=== PATIENT | female | born 1960 | race Caucasian/White ===

== ENCOUNTER 2016-10-22 13:33 | Emergency (ER) | payer MEDICARE, MEDICAID ==
[~2016-10-22] VITALS: Ht 157.5 cm; Wt 77.7 kg
[~2016-10-22 13:33] MED LIST: ALBU18HF INH; ARIP5TAB5 PO; FENT1PAT11 TRANSDERM; IPRA3AMP IH; LORA0.5T PO; MONT10TA20 PO; OXYC10TA8 PO; SYMINH IH; TIOT18CA3 IH
[2016-10-22 13:42] VITALS: BP 145/79; PULSE 94; RESP 18; O2SAT 97
--- NOTE | 2016-10-22 14:18 | DRSVH ---
PROCEDURE: X-RAY CHEST, TWO VIEWS ([id number]) INDICATIONS: chest pain/hx copd TECHNIQUE: 2 views of the chest were acquired. COMPARISON: [facility], CR, XR CHEST 1VW (PORTABLE), 08/01/2016, 11:08. FINDINGS: Surgical changes and devices: Clips are present overlying the lower thorax and upper abdomen. Lungs and pleura: No pleural effusions or pneumothorax. Lungs are clear. Mediastinum: Mediastinal contours are normal. Heart size is normal. Bones and chest wall: No suspicious bony abnormalities. Soft tissues appear unremarkable. IMPRESSION: No acute pulmonary process. Dictated by: Laurence Vo M.D. on 10/22/2016 at 14:16 Approved by: Laurence Vo M.D. on 10/22/2016 at 14:16
[2016-10-22 14:43] LABS: BASOPHILS % (AUTO) 0.5 % (0-3); EOSINOPHILS % (AUTO) 0.7 % (0-5); MONOCYTES % (AUTO) 9.9 % (4-12); Mean Corpuscular Hemoglobin 33.1 pg (27.0-35.0); Mean Corpuscular Volume 96.8 fL (81-100); NEUTROPHILS % (AUTO) 71.1 % (40-74); Platelet Count 402 bil/L (150-400)
[2016-10-22] MEDS ORDERED: Ondansetron 2 mg/mL 2 mL Inj ONE (14:49)
--- NOTE | 2016-10-22 15:13 | ED.REPORT ---
HPI-Chest Pain 40 and Over Date of Service Oct 22, 2016 ED Provider: Peña Gill MD Pt is a 55 year old female with a history of COPD and DM who presents to the ED with concerns for chest pressure that started this morning. Pt reports that she woke up with this pain, which is localized in her left side and radiates to her back. She states that the pain is exacerbated with movement and deep breathing and has been constant since its onset. Pt reports that the pain is associated with SOB, but denies any cough, lower extremity swelling or tenderness, rhinorrhea, or fevers. She reports that she quit smoking a couple of months ago. She denies any recent long periods of immobilization, or hx of blood clots. Nursing Notes Stated Complaint: LEFT SIDE CHEST PAIN Chief Complaint: Chest Pain Nursing Notes Reviewed: Yes Allergies: Coded Allergies: sumatriptan (Unverified Allergy, Severe, neuro sensation, 06/24/16) codeine (Verified Allergy, Intermediate, itching, nausea, 06/24/16) [id number] Antimigraine Agents (Verified Allergy, Unknown, strange feeling in head, 06/24/16) NSAIDS (Non-Steroidal Anti-Inflamma (Verified Adverse Reaction, Severe, Nausea,Vomiting, 06/24/16) acetaminophen (Verified Adverse Reaction, Severe, r/t liver damage, 06/24/16 ) nicotine (Verified Adverse Reaction, Severe, Rash,Itching,, 06/24/16) aspirin (Verified Adverse Reaction, Intermediate, Abdominal Pain, nausea, hx liver injury, 06/24/16) Scheduled Aripiprazole (Abilify) 5 Mg Tablet 10 MG PO DAILY Budesonide/Formoterol 160-4.5 mcg Inh (Symbicort 160-4.5 mcg Inh) 1 Puff Inha 2 PUFF IH BID Fentanyl 100 mcg/hr Patch (Fentanyl 100 mcg/hr Patch) 1 Each Patch.td72 1 PATCH TRANSDERM Q3D USE W/ 25MCG/HR PATCH Montelukast (Singulair) 10 Mg Tablet 10 MG PO QAM Tiotropium [place] (Spiriva) 18 Mcg Cap.w.dev 18 MCG IH AM Scheduled PRN Albuterol Sulfate (Ventolin HFA Inhaler) 200 Puff/18 Gm Inhaler 2 PUFF INH Q4 PRN PRN For Wheezing Ipratropium/Albuterol Sulfate (Iprat-Albut 0.5-3(2.5) mg/3 mL Inhalant Soln) 3 Ml Ampul.neb 3 ML IH TID PRN PRN PRN Lorazepam (Lorazepam) 0.5 Mg Tablet 0.5 MG PO TID PRN PRN For Anxiety oxyCODONE (oxyCODONE) 10 Mg Tablet 10 MG PO Q4H PRN PRN For Pain General Time Seen by MD: 15:10 Chief Complaint Chest pain Hx Obtained From: Patient Arrived By: Walk-in Sudden in Onset?: Yes Onset Occurred: 9 - 12 hours ago Symptom Duration: Since onset Location: : Chest left Quality: Painful Radiation: : Back Severity: Current: Mild Severity: Maximum: Moderate Similar Sx Previous: Yes Risk Factors Well's Criteria for PE Well's PE Score: 0-2 pts (low risk 3.6%) Past Medical History Past Medical History Notes: Multiple recent admissions, discharge dates: 07/10, 08/15, 09/19, and 10/10 COPD exacerbation and pneumonia Past Medical History Angioimmunoblastic T-cell lymphoma, with hemolytic anemia followed by Dr. Lincoln. Depression, anxiety requiring benzodiazepines Chronic pain with narcotic dependence Inflamed ducts, left breast, requiring mastectomy Migraines Chronic respiratory failure, with oxygen/steroid dependent COPD Cervical stenosis with myeloradiculopathy s/p C3-C4, C4-C5, and C5-C6 anterior cervical diskectomy and fusion performed by Dr. Rashawn Joe, Oct 2011 Migraine headaches. Report of seizure disorder history Hypothyroidism. Distant history of seizures. 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 Reports: COPD, Diabetes mellitus, Hypertension Reports: Migraines Past Surgical History Splenectomy due to trauma Left mastectomy Lumbar spine surgery, cervical spine surgery Sinus surgery for deviated septum, Exploratory laparotomy for bowel obstruction Hernia repair Power port Reports: Appendectomy, , Tonsillectomy Reports: Portocath Family History Noncontributory Smoking History Light Tobacco Smoker Social History Alcohol Use: Denies alcohol use Drug Use: THC Other Social History: Local resident Ambulatory Status Independent Review of Systems Constitutional: Denies: Chills, Fever, Malaise, Weakness - generalized Respiratory: Reports: Shortness of breath, Denies: Non-productive cough, Wheezing Cardiovascular: Reports: Chest pain, Denies: Syncope GI: Denies: Abdominal pain, Constipation, Diarrhea, Nausea, Vomiting Musculoskeletal: Denies: Back pain, Extremity pain, Neck pain Skin: Denies Diaphoresis, Denies Rash Neurologic: Denies: Change LOC, Dizziness, Headache, Seizure, Syncope, Weakness Complete sys rev & neg: except as marked. Physical Exam Initial Vital Signs Vital Signs (First) Date Time Temp Pulse Resp B/P Pulse Ox O2 Delivery O2 Flow Rate FiO2 10/22/16 13:42 36.4 94 18 145/79 97 Room Air Initial VS: Reviewed Head / Eyes: Atraumatic, Normocephalic, PERRL ENT: Mucous membranes moist, Conjunctiva normal, No scleral icterus Neck: Supple, Non-tender, Full range of motion Skin: Warm, Dry, No cyanosis Neurologic: Alert, Oriented, Nonfocal Psychiatric: Mood/affect normal, Behavior normal, Normal thought content General/Constitutional: Awake, Alert, Well appearing, Well developed, Well nourished, Cooperative Appearance / Presentation: Positive: Obese, Uncomfortable Respiratory / Chest: Atraumatic, Breath sounds NL, Breath sounds = bilat, No respiratory distress Cardiovascular: Heart rate NL, Regular rhythm, Heart sounds NL, No gallop, No murmurs, No rubs No LE edema Abdomen: Atraumatic, Soft, Non-tender Interpretation & Diagnostics Lab Results Interpretation Result Diagram: 10/22/16 1435 10/22/16 1435 Test 10/22/16 14:35 White Blood Count 16.8th/mm3 (3.8-10.1) Red Blood Count 4.08mil/mm3 (3.90-5.20) Hemoglobin 13.5g/dL (12.0-15.6) Hematocrit 39.5% (35.0-46.0) Mean Corpuscular Volume 96.8fL (81-100) Mean Corpuscular Hemoglobin 33.1pg (27.0-35.0) Mean Corpuscular Hemoglobin Concent 34.2% (32.0-37.0) Red Cell Distribution Width 13.1% (12.3-15.4) Platelet Count 402bil/L (150-400) Neutrophils (%) (Auto) 71.1% (40-74) Lymphocytes (%) (Auto) 17.5% (14-46) Monocytes (%) (Auto) 9.9% (4-12) Eosinophils (%) (Auto) 0.7% (0-5) Basophils (%) (Auto) 0.5% (0-3) D-Dimer < 0.5mg/L (<0.50) Sodium Level 138mEq/L (134-144) Potassium Level 4.0mEq/L (3.5-5.2) Chloride Level 101mEq/L (97-108) Carbon Dioxide Level 26mmol/L (18-29) Blood Urea Nitrogen 9mg/dL (6-24) Creatinine 0.55mg/dL (0.57-1.00) Estimat Glomerular Filtration Rate 164mL/min (>59) Glucose Level 175mg/dL (60-99) Lactic Acid Level 0.2mmol/L (0.4-2.0) Calcium Level 9.1mg/dL (8.5-10.1) Total Bilirubin 0.3mg/dL (0.0-1.2) Aspartate Amino Transf (AST/SGOT) 54U/L (0-50) Alanine Aminotransferase (ALT/SGPT) 106U/L (0-32) Alkaline Phosphatase 143U/L (25-150) Troponin T < 0.010ug/L (0.0-0.011) Total Protein 6.4g/dL (6.4-8.4) Albumin 4.0g/dL (3.4-5.0) Hold Cabezas Top Tube Received (Received) ECG Interpretation ECG Interpretation: SR - [address] segment changes Time: 14:24 Interpreted by: ED physician X-Ray Chest Interpretation Chest Xray Interpretation: IMPRESSION: No acute pulmonary process. Dictated by: Laurence Vo M.D. on 10/22/2016 at 14:16 Interpretation / Wet Read by: Interpret - Radiologist Re-Eval/Medical Decision Med Decision/Clinical Course 55-year-old female history of COPD presenting with left-sided chest pain that woke her up this morning at 07 100. Denies any shortness of breath cough, other associated symptoms. Vital signs stable. Oxygen is 97% on room air. Lungs are clear. Troponins negative. D-dimer normal. EKG unremarkable. Chest x-ray unremarkable. Chest pain is reproducible. Suspect musculoskeletal in the setting of normal workup as above. Patient cannot take nonsteroidal anti-inflammatories was given morphine with improvement in pain. Of note she has also discontinued her muscle relaxers recently does report some spasming left chest. Given normal workup as above in exam as above, I believe patient to be discharged home safely with return precautions. Recommended follow-up with primary doctor 1-2 days. Source of Hx: Old records Time of Eval: 15:30 Re-Evaluation/Progress Note: Pt is rechecked and reports that she is unable to take NSAIDS du to allergy. She reports that she is on steroids, she is in remission for a Lymphoma. Time of Eval: 16:14 Re-Evaluation/Progress Note: Pt is rechecked and informed of her imaging results, and the plan to discharge her at this time. She understands and agrees, all questions are addressed. Counseled Regarding: Diagnosis, Lab results, When/why to return to ED Discharge & Departure Primary Impression: Chest pain Chest pain type: unspecified Qualified Code: R07.9 - Chest pain, unspecified Disposition: Home Discharge Condition All VS Reviewed: Yes Condition: Critical Patient Instructions: Chest Pain (ED) Additional Instructions: I am sorry that you are experiencing this chest pain today, but thankfully I found no dangerous cause for this today. Your labs, EKG and chest x-ray were all reassuring. Follow up with your primary care provider later this week for this pain. Take Tylenol to alleviate your pain. Return to the emergency department with any worsening chest pain, shortness of breath, fevers, or any other worsening or concerning symptoms. I hope you start feeling better soon. Referrals: Sumanth Montes (PCP) Catherineibserina Attestation Portions of this note were transcribed by Brandie Zhang. I, Dr. Gill personally performed the history, physical exam and medical decision-making; I reviewed and confirmed the accuracy of the information in the transcribed note. Signed by: Catherine Carr, 10/22/2016 1610. copies to: Sumanth Montes Ben M MD Oct 22, 2016 15:13 JACQUES ZHANG Oct 22, 2016 15:28
[2016-10-22 15:28] LABS: TROPONIN T < 0.010 ug/L (0.0-0.011)
[2016-10-22] MEDS ORDERED: Ondansetron 2 mg/mL 2 mL Inj IVPUSH ONE (15:35)
[2016-10-22 16:04] VITALS: BP 132/68; PULSE 80; RESP 27; O2SAT 98
[2016-10-22 16:27] VITALS: BP 134/80; PULSE 79; RESP 14; O2SAT 97
[2016-10-22 16:33] VITALS: BP 134/80; PULSE 79; O2SAT 97
[2017-02-17] MEDS ORDERED: PRE20 PO (10:22)
[2017-02-17] MEDS ORDERED: AZIT250T4 PO (10:22)
[2017-03-03] MEDS ORDERED: VARE1TAB21 PO (08:14)
[2017-03-03] MEDS ORDERED: HYDR-656 PO (08:14)
== END 2016-10-22 16:11 | disposition home or self-care (01) ==
LOC: SED 13:33
DX: R07.89 Other chest pain (principal); E11.9 Type 2 diabetes mellitus without complications; I10 Essential (primary) hypertension; J44.9 Chronic obstructive pulmonary disease, unspecified; F17.200 Nicotine dependence, unspecified, uncomplicated; Z88.5 Allergy status to narcotic agent; Z88.8 Allergy status to other drugs, medicaments and biological substances
CPT/HCPCS: 36415; 71020; 80053; 83605; 84484; 85025; 85379; 93005; 96374; 96375; 99285; J2270; J2405

== ENCOUNTER 2017-02-19 08:35 | Inpatient (IN) | payer MEDICARE, MEDICAID ==
[~2017-02-19] VITALS: Ht 154.9 cm; Wt 83.2 kg
[2017-02-19] VITALS (13 sets, daily range): BP systolic 113–135; BP diastolic 63–87; PULSE 67–91; RESP 16–22; O2SAT 92–98
[~2017-02-19 08:35] MED LIST changes: +AZIT250T4 PO; -LORA0.5T PO; +PRE20 PO
[2017-02-19] MEDS ORDERED: Albuterol-Ipratropium 3 mL Inhalation Solution ONE (08:56)
--- NOTE | 2017-02-19 09:13 | DRSVH ---
PROCEDURE: X-RAY CHEST ONE VIEW, PORTABLE ([id number]) INDICATIONS: SHORTNESS OF BREATH TECHNIQUE: One view of the chest was acquired. COMPARISON: [facility], CR, XR CHEST 2VW, 10/22/2016, 14:05. FINDINGS: Surgical changes and devices: None. Lungs and pleura: No pleural effusions or pneumothorax. Lungs are clear. Mediastinum: Mediastinal contours appear normal. Heart size is normal. Bones and chest wall: No suspicious bony lesions. Overlying soft tissues appear unremarkable. IMPRESSION: Negative chest. No acute cardiopulmonary process is evident. Dictated by: Robert Sotelo M.D. on 02/19/2017 at 8:11 Approved by: Robert Sotelo M.D. on 02/19/2017 at 8:12
[2017-02-19 09:15] LABS: BASOPHILS % (AUTO) 0.5 % (0-3); EOSINOPHILS % (AUTO) 0.2 % (0-5); MONOCYTES % (AUTO) 11.3 % (4-12); Mean Corpuscular Hemoglobin 34.4 pg (27.0-35.0); Mean Corpuscular Volume 97.6 fL (81-100); NEUTROPHILS % (AUTO) 71.4 % (40-74); Platelet Count 415 bil/L (150-400)
--- NOTE | 2017-02-19 09:25 | ED.REPORT ---
HPI-Dyspnea / Wheezing Date of Service February 19, 2017 ED Provider: Peña Gill MD The patient is a 56 year old female w/ a hx of lymphoma, COPD, HTN, and DM who presents to the ED due to COPD exacerbation for the last 2 days. Associated symptoms include cough and chest pain. She is currently on prednisone (40 mg for 2 days then reduced to 20 mg) and inhalers. She was admitted to [facility] over the weekend for an observation stay and was discharged wit cruz Zpak and steroids. The pt felt like she was initially improving on the steroids , but then began to decline again over the past few days. Nursing Notes Stated Complaint: SHORTNESS OF BREATH Chief Complaint: Respiratory Distress Nursing Notes Reviewed: Yes Allergies: Coded Allergies: sumatriptan (Unverified Allergy, Severe, neuro sensation, 02/19/17) codeine (Verified Allergy, Intermediate, itching, nausea, 02/19/17) [id number] Antimigraine Agents (Verified Allergy, Unknown, strange feeling in head, 02/19/17) NSAIDS (Non-Steroidal Anti-Inflamma (Verified Adverse Reaction, Severe, Nausea,Vomiting, 02/19/17) acetaminophen (Verified Adverse Reaction, Severe, r/t liver damage, 02/19/17 ) nicotine (Verified Adverse Reaction, Severe, Rash,Itching,, 02/19/17) aspirin (Verified Adverse Reaction, Intermediate, Abdominal Pain, nausea, hx liver injury, 02/19/17) Scheduled Aripiprazole (Aripiprazole) 10 Mg Tablet 10 MG PO DAILY Budesonide/Formoterol 160-4.5 mcg Inh (Symbicort 160-4.5 mcg Inh) 1 Puff Inha 2 PUFF IH BID Duloxetine (Duloxetine) 30 Mg Capsule.dr 30 MG PO DAILY In addition to 60mg daily Duloxetine (Duloxetine) 60 Mg Capsule.dr 60 MG PO DAILY Fentanyl 25 mcg/hr Patch (Fentanyl 25 mcg/hr Patch) 1 Each Patch.td72 25 MCG TOP Q72Hrs Montelukast (Montelukast) 10 Mg Tablet 10 MG PO HS Tiotropium [place] (Spiriva) 18 Mcg Cap.w.dev 18 MCG IH AM Scheduled PRN Albuterol Sulfate (Ventolin HFA Inhaler) 200 Puff/18 Gm Inhaler 2 PUFF INH Q4 PRN PRN For Wheezing Ipratropium/Albuterol Sulfate (Iprat-Albut 0.5-3(2.5) mg/3 mL Inhalant Soln) 3 Ml Ampul.neb 3 ML IH TID PRN PRN PRN oxyCODONE (oxyCODONE) 10 Mg Tablet 10 MG PO Q4H PRN PRN For Pain General Time Seen by MD: 08:57 Chief Complaint Other (COPD exacerbation) Hx Obtained From: Patient Arrived By: Walk-in Sudden in Onset?: Yes Onset Occurred: 1 week ago Symptom Duration: Since onset Recent Healthcare: Recent doctor visit, Recent hospitalization Similar Sx Previous: Yes Risk Factors Well's Criteria for PE Well's PE Score: 0-2 pts (low risk 3.6%) Past Medical History Past Medical History Notes: Multiple recent admissions, discharge dates: 07/10, 08/15, 09/19, and 10/10 COPD exacerbation and pneumonia Past Medical History Angioimmunoblastic T-cell lymphoma, with hemolytic anemia followed by Dr. Lincoln. Depression, anxiety requiring benzodiazepines Chronic pain with narcotic dependence Inflamed ducts, left breast, requiring mastectomy Migraines Chronic respiratory failure, with oxygen/steroid dependent COPD Cervical stenosis with myeloradiculopathy s/p C3-C4, C4-C5, and C5-C6 anterior cervical diskectomy and fusion performed by Dr. Rashawn Joe, Oct 2011 Migraine headaches. Report of seizure disorder history Hypothyroidism. Distant history of seizures. 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 Reports: COPD, Diabetes mellitus, Hypertension Reports: Migraines Past Surgical History Splenectomy due to trauma Left mastectomy Lumbar spine surgery, cervical spine surgery Sinus surgery for deviated septum, Exploratory laparotomy for bowel obstruction Hernia repair Power port Reports: Appendectomy, , Tonsillectomy Reports: Portocath Family History Noncontributory Smoking History Former Smoker Social History Alcohol Use: Denies alcohol use Drug Use: THC Other Social History: Local resident Ambulatory Status Independent Review of Systems Respiratory: Reports: Non-productive cough, Shortness of breath Cardiovascular: Reports: Chest pain Complete sys rev & neg: except as marked. Physical Exam Initial Vital Signs Vital Signs (First) Date Time Temp Pulse Resp B/P Pulse Ox O2 Delivery O2 Flow Rate FiO2 02/19/17 08:37 37.4 81 16 130/73 92 Room Air 02/19/17 08:45 2.5 Initial VS: Reviewed Head / Eyes: Atraumatic, Normocephalic ENT: Mucous membranes moist, Conjunctiva normal Abdomen / GI: Soft, Non-tender Extremities: Vascular intact, Neuro intact, No swelling Skin: Warm, Dry General/Constitutional: Awake, Alert, Cooperative Neck: Atraumatic, Supple, No meningismus Wheezing / Retractions: Positive: Wheeze insp/exp diffuse Cardiovascular: Heart rate NL, Regular rhythm, Heart sounds NL, No murmurs Interpretation & Diagnostics Lab Results Interpretation Result Diagram: 02/19/17 0850 02/19/17 0850 Test 02/19/17 08:50 02/19/17 09:00 White Blood Count 22.1th/mm3 (3.8-10.1) Red Blood Count 4.16mil/mm3 (3.90-5.20) Hemoglobin 14.3g/dL (12.0-15.6) Hematocrit 40.6% (35.0-46.0) Mean Corpuscular Volume 97.6fL (81-100) Mean Corpuscular Hemoglobin 34.4pg (27.0-35.0) Mean Corpuscular Hemoglobin Concent 35.2% (32.0-37.0) Red Cell Distribution Width 13.8% (12.3-15.4) Platelet Count 415bil/L (150-400) Neutrophils (%) (Auto) 71.4% (40-74) Lymphocytes (%) (Auto) 13.3% (14-46) Monocytes (%) (Auto) 11.3% (4-12) Eosinophils (%) (Auto) 0.2% (0-5) Basophils (%) (Auto) 0.5% (0-3) D-Dimer < 0.50mg/L FEU (<0.50) Sodium Level 141mEq/L (134-144) Potassium Level 4.2mEq/L (3.5-5.2) Chloride Level 99mEq/L (97-108) Carbon Dioxide Level 27mmol/L (18-29) Blood Urea Nitrogen 17mg/dL (6-24) Creatinine 0.65mg/dL (0.57-1.00) Estimat Glomerular Filtration Rate 135mL/min (>59) Glucose Level 189mg/dL (60-99) Calcium Level 9.4mg/dL (8.5-10.1) Magnesium Level 2.2mg/dL (1.6-2.6) Total Bilirubin 0.5mg/dL (0.0-1.2) Aspartate Amino Transf (AST/SGOT) 23U/L (0-50) Alanine Aminotransferase (ALT/SGPT) 73U/L (0-32) Alkaline Phosphatase 133U/L (25-150) Troponin T 0.010ug/L (0.0-0.011) Pro-B-Type Natriuretic Peptide 270.3pg/mL (0-287) Total Protein 6.5g/dL (6.4-8.4) Albumin 4.3g/dL (3.4-5.0) Hold Cabezas Top Tube Received (Received) Urine Color Yellow (YELLOW) Urine Appearance Slightly cloudy Urine pH 7.0 (5.0-8.0) Urine Specific Avenue 1.005 (1.003-1.035) Urine Protein Negativemg/dL (NEG,TRACE) Urine Glucose (UA) Negativemg/dL (NEGATIVE) Urine Ketones Negativemg/dL (NEGATIVE) Urine Occult Blood Negative (NEGATIVE) Urine Nitrite Negative (NEGATIVE) Urine Bilirubin Negative (NEGATIVE) Urine Urobilinogen Normalmg/dL (NORMAL) Urine Leukocyte Esterase Trace (NEGATIVE) Urine RBC 0-2/hpf (0-2) Urine WBC 0-5/hpf (0-5) Urine Epithelial Cells Moderate/hpf (NONE-MOD) Urine Crystals None seen (NONE SEEN) Urine Bacteria Moderate/hpf (NONE-FEW) Urine Hyaline Casts None/lpf (NONE) Urine Granular Casts None seen (NONE SEEN) Urine Waxy Casts None seen (NONE SEEN) Urine Red Blood Cell Casts None seen (NONE SEEN) Urine White Blood Cell Casts None seen (NONE SEEN) Urine Mucus Present (None Seen) Urine Trichomonas None seen (NONE SEEN) Urine Yeast None (NONE SEEN) Urinalysis Comment None Urine Culture Reflexed Indicated ECG Interpretation Time: 09:00 Interpreted by: ED physician Normal ECG Interpretation: Normal sinus rhythm (69) X-Ray Chest Interpretation Chest Xray Interpretation: IMPRESSION: Negative chest. No acute cardiopulmonary process is evident. Dictated by: Robert Sotelo M.D. on 02/19/2017 at 8:11 Approved by: Robert Sotelo M.D. on 02/19/2017 at 8:12 View: Portable Interpretation / Wet Read by: Interpret - Radiologist Re-Eval/Medical Decision Med Decision/Clinical Course 56-year-old female history of cell lymphoma in remission, COPD presenting with dyspnea times one week. She was admitted for COPD exacerbation at outside hospital [place] over the weekend for observation. She was told by her oncologist if it gets worse to come here instead. On arrival she had moderate work of breathing. She was given several nebulizers and IV Solu-Medrol and had minimal improvement. She was still complaining of severe shortness of breath and mild work of breathing. She has a leukocytosis but she has been on steroids. She completed a Z-Miky yesterday. Patient does not feel comfortable going home as [place] away. Admitted for COPD exacerbation. Re-Evaluation/Progress #1: Time of Eval: 09:29 Re-Evaluation/Progress Note: Plan for another breathing treatment. Re-Evaluation/Progress #2: Time of Eval: 10:26 Re-Evaluation/Progress Note: Pt rechecked. Breathing is slightly improved with treatment. Plan for admission due to COPD exacerbation. Consultation : Referral / Consult Name: KWESI SHRESTHA MD Consulted With: Hospitalist Call Returned at: 11:31 Analysis Specialist: Accepts admit Note: Case discussed. Dr. Shrestha will accept admit. Counseled Regarding: Diagnosis, Lab results, Need for admission Discharge & Departure Impression: Primary Impression: COPD exacerbation Additional Impression: Chest pain Chest pain type: unspecified Qualified Code: R07.9 - Chest pain, unspecified Disposition: ADMITTED TO HOSPITAL Discharge Condition All VS Reviewed: Yes Condition: Stable Referrals: Sumanth Montes (PCP) Atif Attestation Portion of this note were transcribed by Carmen Busby. I, Dr. Gill, personally performed the history, physical exam, and medical decision-making: I reviewed and confirmed the accuracy for the information in the transcribed note. Signed by: atif Michel, 02/19/17 1200 copies to: Sumanth Montes Ben M MD February 19, 2017 09:25 Carmen Busby February 19, 2017 09:33
[2017-02-19] MEDS ORDERED: MethylprednisoLONE Sodium Succinate 62.5 mg/mL 2 mL Inj IVPUSH ONE (09:30)
[2017-02-19] MEDS ORDERED: Albuterol-Ipratropium 3 mL Inhalation Solution NEB ONE (09:30)
[2017-02-19 09:42] LABS: TROPONIN T 0.01 ug/L (0.0-0.011)
[2017-02-19 09:52] LABS: APPEARANCE,URINE SLIGHTLY CLOUDY (CLEAR,HAZY); COLOR,URINE YELLOW (YELLOW)
[2017-02-19 09:53] LABS: Magnesium 2.2 mg/dL (1.6-2.6)
[2017-02-19 09:53] LABS: OCCULT BLOOD,URINE NEGATIVE (NEGATIVE); UROBILINOGEN,URINE NORMAL (NORMAL)
[2017-02-19] MEDS ORDERED: Ondansetron 2 mg/mL 2 mL Inj IVPUSH ONE (10:40)
[2017-02-19] MEDS ORDERED: Polyethylene Glycol (PEG) 17 Gm Powder PO PRN (11:35)
[2017-02-19] MEDS ORDERED: Alum-Mag Hydrox-Simeth 30 mL Suspension PO PRN (11:35)
[2017-02-19] MEDS ORDERED: ARIP10TA16 PO (13:08)
[2017-02-19] MEDS ORDERED: DULO60CA61 PO (13:08)
[2017-02-19] MEDS ORDERED: FENT1PAT7 TOP (13:08)
[2017-02-19] MEDS ORDERED: DULO30CA50 PO (13:08)
[2017-02-19] MEDS ORDERED: MONT10TA23 PO (13:08)
[2017-02-19] MEDS: Ondansetron 2 mg/mL 2 mL Inj IVPUSH PRN (13:29)
--- NOTE | 2017-02-19 13:48 | PCM.HPMED ---
Subjective Date of Service February 19, 2017 Primary Provider: Admitting Physician: Kevin Shrestha DO Primary Care Physician: Sumanth Montes Attending Physician: Kevin Shrestha DO Admit Status: From the Emergency Department Chief Complaint: Persistent and worsening shortness of breath History of Present Illness: Patient is a 56-year-old female past medical history of severe COPD hypertension diabetes mellitus and lymphoma currently in remission, presenting emergency room with a greater than one-week history of worsening shortness of breath. Projection is seen Observation overnight and oriented hospital on week prior, at which time she was provided dose of Solu-Medrol and discharged on a 5 day course of prednisone 40 mg by mouth in addition to Z-Miky. She was initially feeling better on discharge more than hospital with shortness of breath again continue to worsen over the last couple of days and got to the point where she felt she needed further evaluation. She notes prior presentation to emergency room she was short of breath even at rest and was able to do nearly no form of exertion without severe dyspnea. Denies any overt chest pain however but she endorses diffuse chest tightness. She denies any recent fever or chills. She also endorses seasonal allergies and wonders if this may be playing a role in her current decompensation. He denies any abdominal pains or emesis but she has had some nausea over the past couple days. Review of Systems: 10-point review of systems conducted and entirely negative excepting pertinent positives and negatives included in HPI. Allergies Coded Allergies: sumatriptan (Unverified Allergy, Severe, neuro sensation, 02/19/17) codeine (Verified Allergy, Intermediate, itching, nausea, 02/19/17) [id number] Antimigraine Agents (Verified Allergy, Unknown, strange feeling in head, 02/19/17) NSAIDS (Non-Steroidal Anti-Inflamma (Verified Adverse Reaction, Severe, Nausea,Vomiting, 02/19/17) acetaminophen (Verified Adverse Reaction, Severe, r/t liver damage, 02/19/17 ) nicotine (Verified Adverse Reaction, Severe, Rash,Itching,, 02/19/17) aspirin (Verified Adverse Reaction, Intermediate, Abdominal Pain, nausea, hx liver injury, 02/19/17) Home Medications Aripiprazole (Abilify) 5 Mg Tablet 10 MG PO DAILY Azithromycin (Zithromax (Z-Miky)) 250 Mg Tablet 250 MG PO DIRECTED Take two tablets by mouth on day 1, then take one tablet daily on days 2 through 5. Budesonide/Formoterol 160-4.5 mcg Inh (Symbicort 160-4.5 mcg Inh) 1 Puff Inha 2 PUFF IH BID Fentanyl 100 mcg/hr Patch (Fentanyl 100 mcg/hr Patch) 1 Each Patch.td72 1 PATCH TRANSDERM Q3D USE W/ 25MCG/HR PATCH Montelukast (Singulair) 10 Mg Tablet 10 MG PO QAM Prednisone (PredniSONE) 20 Mg Tablet 20 MG PO DAILY Tiotropium [place] (Spiriva) 18 Mcg Cap.w.dev 18 MCG IH AM Scheduled PRN Albuterol Sulfate (Ventolin HFA Inhaler) 200 Puff/18 Gm Inhaler 2 PUFF INH Q4 PRN PRN For Wheezing Ipratropium/Albuterol Sulfate (Iprat-Albut 0.5-3(2.5) mg/3 mL Inhalant Soln) 3 Ml Ampul.neb 3 ML IH TID PRN PRN PRN oxyCODONE (oxyCODONE) 10 Mg Tablet 10 MG PO Q4H PRN PRN For Pain PMH Angioimmunoblastic T-cell lymphoma, with hemolytic anemia followed by . Depression, anxiety requiring benzodiazepines Chronic pain with narcotic dependence Inflamed ducts, left breast, requiring mastectomy Migraines Chronic respiratory failure, with oxygen/steroid dependent COPD Cervical stenosis with myeloradiculopathy s/p C3-C4, C4-C5, and C5-C6 anterior cervical diskectomy and fusion performed by Dr. Rashawn Joe, Oct 2011 Migraine headaches. Report of seizure disorder history Hypothyroidism. Distant history of seizures. 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 COPD, Diabetes mellitus, Hypertension Surgical History Splenectomy due to trauma Left mastectomy Lumbar spine surgery, cervical spine surgery Sinus surgery for deviated septum, Exploratory laparotomy for bowel obstruction Hernia repair Power port Appendectomy, , Tonsillectomy Portocath Family History Pt denies any known family medical history Social History Hx Alcohol Use: No Hx Substance Use: Yes (marijuana daily.) Hx Tobacco Use: Yes (0.5 ppd) Smoking Status: Former Smoker Exam Vital Signs Vital Sign - Last Date Time Temp Pulse Resp B/P Pulse Ox O2 Delivery O2 Flow Rate FiO2 02/19/17 13:38 78 02/19/17 12:03 36.6 22 125/78 94 Nasal Cannula 1.50 General: Alert, Oriented X3, Cooperative, Mild Distress Eyes: EOMI Mouth: Mucous Membr Moist/[place] Neck: Supple Chest & Lungs: Clear to auscultation & percussion, Coarse breath sounds, Expiratory wheezes Cardiovascular: Regular Rate/Rhythm Abdomen: Non-tender, Non-distended Extremities: No cyanosis/clubbing/edma bilat Neurological: Grossly Neurologically Intact Lab and Diagnostics Result Diagram: 02/19/17 0850 02/19/17 0850 IVs and Medications Medications Reviewed: Medications were reviewed in detail Assessment & Plan 56-year-old female with COPD placed on hospital observation for severe exacerbation not responsive to initial steroid burst therapy. 1. COPD exacerbation - Given normal white blood cell count and normal pro-calcitonin we will defer antibiotic therapy at this time elect only for treatment with steroids. - Patient received 1 dose Solu-Medrol, we will continue prednisone at 60 mg daily starting tomorrow - Patient is on home oxygen will be provided supplement oxygen as needed during this hospitalization. Generally its only required sleep. - DuoNeb therapies have been prescribed every 4 hours on a standing basis at this time to be tapered as tolerated. Most the patient's own nebulizer therapies were continued however Spiriva on hold while DuoNeb's active. 2. Diabetes mellitus type II - Patient will be placed on sliding scale insulin. - Anticipate some exacerbation with steroid burst 3. Mood disorder with anxiety and depression symptoms - We will continue to Cymbalta current outpatient dosage, in addition to Abilify. 4. 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 - We will continue all medications at this time, consider further adjustments as needed for pain not responsive to outpatient therapy. Pain Evaluation: Adequate Pain Control GI Prophylaxis: Not indicated VTE Mechanical Devices: Intermittant Pneumatic CD Resuscitation Status: CPR: Attempt Resuscitation Time spent 55 minutes Kevin Shrestha DO February 19, 2017 13:48
[2017-02-19] MEDS ORDERED: Glucose 40% Oral Gel 15 Gm Tube PO PRN (14:55)
[2017-02-19] MEDS: DULoxetine 30 mg DR Capsule PO SCH ×2 (15:20)
[2017-02-19] MEDS: Albuterol-Ipratropium 3 mL Inhalation Solution NEB SCH ×3 (16:49→23:10)
[2017-02-19] MEDS: Insulin LISPRO 300 Unit/3 mL Inj SUBQ SCH ×2 (17:18→22:01)
[2017-02-19] MEDS: Fluticasone-Salmererol 250-50 Inhaler INHALATION SCH (20:11)
[2017-02-20] VITALS (8 sets, daily range): BP systolic 106–146; BP diastolic 66–79; PULSE 71–97; RESP 16–21; O2SAT 92–98
[2017-02-20] MEDS: Albuterol-Ipratropium 3 mL Inhalation Solution NEB SCH ×3 (04:54→12:50)
[2017-02-20 07:03] LABS: Mean Corpuscular Hemoglobin 33.3 pg (27.0-35.0); Mean Corpuscular Volume 99.7 fL (81-100); Platelet Count 374 bil/L (150-400)
[2017-02-20 08:10] LABS: MONOCYTES % (AUTO) 8 % (4-12); NEUTROPHILS % (AUTO) 70 % (40-74)
[2017-02-20] MEDS: ARIPiprazole 10 mg Tablet PO SCH (08:10)
[2017-02-20] MEDS: DULoxetine 30 mg DR Capsule PO SCH ×2 (08:10→08:11)
[2017-02-20 08:11] LABS: BASOPHILS % (AUTO) 0 % (0-3); EOSINOPHILS % (AUTO) 0 % (0-5)
[2017-02-20] MEDS: predniSONE 20 mg Tablet PO SCH (08:11)
[2017-02-20] MEDS: Insulin LISPRO 300 Unit/3 mL Inj SUBQ SCH ×4 (08:12→20:49)
[2017-02-20] MEDS ORDERED: DULoxetine 30 mg DR Capsule PO SCH ×2 (08:30)
[2017-02-20] MEDS: Fluticasone-Salmererol 250-50 Inhaler INHALATION SCH ×2 (09:11→19:59)
[2017-02-20] MEDS: Ondansetron 2 mg/mL 2 mL Inj IVPUSH PRN (11:26)
--- NOTE | 2017-02-20 14:09 | PCM.PNMED ---
Subjective Date of Service February 20, 2017 Subjective Patient notes some improvement in breathing function overnight though certainly not return to baseline. She is to require oxygen to breathe comfortably. Does not I fever chills however. Still experiencing some diffuse chest tightness but no chest pains. Also denies any palpitations. Appetite is adequate. No other acute complaints at this time. Appears to be benefiting from current therapy, notes following nebulizer treatments breathing feels much relieved. Exam Vital Signs Vital Sign - Last Date Time Temp Pulse Resp B/P Pulse Ox O2 Delivery O2 Flow Rate FiO2 02/20/17 12:52 94 16 96 Nasal Cannula 1.50 02/20/17 12:44 36.5 110/66 Intake and Output 02/19/17 02/19/17 02/20/17 Cumulative From/Thru 15:00 23:00 07:00 02/19/17 08:37 - 02/19/17 19:08 Intake Total 1236 ml 1236 ml Output Total 925 ml 925 ml Balance 311 ml 311 ml Intake Oral 1236 ml 1236 ml Output Urine Total 925 ml 925 ml Exam General: Alert, Oriented X3, Cooperative, Mild Distress Eyes: EOMI Mouth: Mucous Membranes Moist/[place] Neck: Supple Chest & Lungs: Clear to auscultation & percussion, Coarse breath sounds but improved from one day prior, Expiratory wheezes with good inspiratory breath sounds. Cardiovascular: Regular Rate/Rhythm Abdomen: Non-tender, Non-distended Extremities: No cyanosis/clubbing/edema bilat IVs and Medications Medications Reviewed: Medications were reviewed in detail Lab and Diagnostics Result Diagram: 02/20/17 0635 02/20/17 0635 Assessment & Plan 56-year-old female with COPD placed on hospital observation for severe exacerbation not responsive to initial steroid burst therapy. 1. COPD exacerbation - Given normal white blood cell count and normal pro-calcitonin we will defer antibiotic therapy at this time elect only for treatment with steroids. - Patient received 1 dose Solu-Medrol, we will continue prednisone at 60 mg daily, which she appears to be benefiting from. I anticipate this is the primary cause for patient's leukocytosis. - Patient is on home oxygen will be provided supplement oxygen as needed during this hospitalization. Generally its only required sleep. - DuoNeb therapies have been prescribed every 4 hours on a standing basis now to be tapered as needed. Most of the patient's own nebulizer therapies were continued however Spiriva on hold while DuoNeb's active. 2. Diabetes mellitus type II - Patient will be placed on sliding scale insulin. - Anticipate some exacerbation with steroid burst 3. Mood disorder with anxiety and depression symptoms - We will continue to Cymbalta current outpatient dosage, in addition to Abilify. 4. 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 - We will continue all medications at this time, consider further adjustments as needed for pain not responsive to outpatient therapy. Pain Evaluation: Adequate Pain Control GI Prophylaxis: Not indicated VTE Mechanical Devices: Intermittant Pneumatic CD Resuscitation Status: CPR: Attempt Resuscitation Time spent 25 minutes Kevin Shrestha DO February 20, 2017 14:09
[2017-02-20] MEDS ORDERED: Albuterol-Ipratropium 3 mL Inhalation Solution NEB PRN (14:10)
[2017-02-20] MEDS: guaiFENesin DM 200-20 mg/10 mL Syrup PO PRN ×2 (14:57→20:48)
[2017-02-21 04:33] VITALS: BP 146/83; PULSE 63; RESP 20; O2SAT 94
[2017-02-21] MEDS: Insulin LISPRO 300 Unit/3 mL Inj SUBQ SCH (07:56)
--- NOTE | 2017-02-21 08:10 | PCM.DC.MED ---
Discharge Summary Date of Service February 21, 2017 Dates of Hospitalization Date of Hospital Admission February 19, 2017 at 11:17 Date of Discharge: February 21, 2017 Providers: Admitting Physician: Kevin Shrestha DO Primary Care Physician: Sumanth Montes Attending Physician: Kevin Shrestha DO Procedures XRay, CTs & MRIs PROCEDURE: X-RAY CHEST ONE VIEW, PORTABLE ([id number]) INDICATIONS: SHORTNESS OF BREATH TECHNIQUE: One view of the chest was acquired. COMPARISON: [facility], CR, XR CHEST 2VW, 10/22/2016, 14:05. FINDINGS: Surgical changes and devices: None. Lungs and pleura: No pleural effusions or pneumothorax. Lungs are clear. Mediastinum: Mediastinal contours appear normal. Heart size is normal. Bones and chest wall: No suspicious bony lesions. Overlying soft tissues appear unremarkable. IMPRESSION: Negative chest. No acute cardiopulmonary process is evident. Dictated by: Robert Sotelo M.D. on 02/19/2017 at 8:11 Approved by: Robert Sotelo M.D. on 02/19/2017 at 8:12 Brief History Patient is a 56-year-old female past medical history of severe COPD hypertension diabetes mellitus and lymphoma currently in remission, presenting emergency room with a greater than one-week history of worsening shortness of breath. Projection is seen Observation overnight and oriented hospital on week prior, at which time she was provided dose of Solu-Medrol and discharged on a 5 day course of prednisone 40 mg by mouth in addition to Z-Miky. She was initially feeling better on discharge more than hospital with shortness of breath again continue to worsen over the last couple of days and got to the point where she felt she needed further evaluation. She notes prior presentation to emergency room she was short of breath even at rest and was able to do nearly no form of exertion without severe dyspnea. Denies any overt chest pain however but she endorses diffuse chest tightness. She denies any recent fever or chills. She also endorses seasonal allergies and wonders if this may be playing a role in her current decompensation. He denies any abdominal pains or emesis but she has had some nausea over the past couple days. Hospital Course 1. COPD exacerbation - Given normal white blood cell count and normal pro-calcitonin we will defer antibiotic therapy at this time elect only for treatment with steroids. - Patient received 1 dose Solu-Medrol, we will continue prednisone at 60 mg daily, which she appears to be benefiting from. I anticipate this is the primary cause for patient's leukocytosis. - Patient is on home oxygen will be provided supplement oxygen as needed during this hospitalization. Generally its only required sleep. She was stable on room air the morning of discharge - Plan to restart home medications in addition to a Steroid step-down over next 10 days (40mg PO daily X5 and 20mg PO daily X5) then discontinued. 2. Diabetes mellitus type II: Stable through hospitalization. 3. Mood disorder with anxiety and depression symptoms - We continued Cymbalta current outpatient dosage, in addition to Abilify. 4. Chronic pain, status post cervical discectomy: continue home medications for pain. Exam Vital Signs (Last) Date Time Temp Pulse Resp B/P Pulse Ox O2 Delivery O2 Flow Rate FiO2 02/21/17 04:33 36.8 63 20 146/83 94 Room Air 02/20/17 22:10 0.50 Exam General: Alert, Oriented X3, Cooperative, Mild Distress Eyes: EOMI Mouth: Mucous Membranes Moist/[place] Neck: Supple Chest & Lungs: Clear to auscultation & percussion, Coarse breath sounds but improved Expiratory wheezes with good inspiratory breath sounds. Cardiovascular: Regular Rate/Rhythm Abdomen: Non-tender, Non-distended Extremities: No cyanosis/clubbing/edema bilat Test 02/19/17 08:50 02/19/17 09:00 02/20/17 06:35 D-Dimer < 0.50mg/L FEU (<0.50) Magnesium Level 2.2mg/dL (1.6-2.6) Total Bilirubin 0.5mg/dL (0.0-1.2) Aspartate Amino Transf (AST/SGOT) 23U/L (0-50) Alanine Aminotransferase (ALT/SGPT) 73U/L (0-32) Alkaline Phosphatase 133U/L (25-150) Troponin T 0.010ug/L (0.0-0.011) Pro-B-Type Natriuretic Peptide 270.3pg/mL (0-287) Total Protein 6.5g/dL (6.4-8.4) Albumin 4.3g/dL (3.4-5.0) Hold [place] Top Tube Received (Received) Urine Color Yellow (YELLOW) Urine Appearance Slightly cloudy Urine pH 7.0 (5.0-8.0) Urine Specific [place] 1.005 (1.003-1.035) Urine Protein Negativemg/dL (NEG,TRACE) Urine Glucose (UA) Negativemg/dL (NEGATIVE) Urine Ketones Negativemg/dL (NEGATIVE) Urine Occult Blood Negative (NEGATIVE) Urine Nitrite Negative (NEGATIVE) Urine Bilirubin Negative (NEGATIVE) Urine Urobilinogen Normalmg/dL (NORMAL) Urine Leukocyte Esterase Trace (NEGATIVE) Urine RBC 0-2/hpf (0-2) Urine WBC 0-5/hpf (0-5) Urine Epithelial Cells Moderate/hpf (NONE-MOD) Urine Crystals None seen (NONE SEEN) Urine Bacteria Moderate/hpf (NONE-FEW) Urine Hyaline Casts None/lpf (NONE) Urine Granular Casts None seen (NONE SEEN) Urine Waxy Casts None seen (NONE SEEN) Urine Red Blood Cell Casts None seen (NONE SEEN) Urine White Blood Cell Casts None seen (NONE SEEN) Urine Mucus Present (None Seen) Urine Trichomonas None seen (NONE SEEN) Urine Yeast None (NONE SEEN) Urinalysis Comment None Urine Culture Reflexed Indicated White Blood Count 28.7th/mm3 (3.8-10.1) Red Blood Count 3.81mil/mm3 (3.90-5.20) Hemoglobin 12.7g/dL (12.0-15.6) Hematocrit 38.0% (35.0-46.0) Mean Corpuscular Volume 99.7fL (81-100) Mean Corpuscular Hemoglobin 33.3pg (27.0-35.0) Mean Corpuscular Hemoglobin Concent 33.4% (32.0-37.0) Red Cell Distribution Width 13.7% (12.3-15.4) Platelet Count 374bil/L (150-400) Neutrophils (%) (Auto) 70% (40-74) Lymphocytes (%) (Auto) 18% (14-46) Monocytes (%) (Auto) 8% (4-12) Eosinophils (%) (Auto) 0% (0-5) Basophils (%) (Auto) 0% (0-3) Band Neutrophils % 2% (1-5) Myelocytes % 2% (0-0) Nucleated Red Blood Cells 1/100 WBC (0-24) Sodium Level 141mEq/L (134-144) Potassium Level 4.2mEq/L (3.5-5.2) Chloride Level 97mEq/L (97-108) Carbon Dioxide Level 30mmol/L (18-29) Blood Urea Nitrogen 19mg/dL (6-24) Creatinine 0.72mg/dL (0.57-1.00) Estimat Glomerular Filtration Rate 120mL/min (>59) Glucose Level 192mg/dL (60-99) Hemoglobin A1c 7.0% (4.8-5.6) Calcium Level 9.5mg/dL (8.5-10.1) Procalcitonin 0.13ng/mL (0.00-0.08) Discharge Medications Discharge Medications Aripiprazole (Aripiprazole) 10 Mg Tablet 10 MG PO DAILY (Reported) Budesonide/Formoterol 160-4.5 mcg Inh (Symbicort 160-4.5 mcg Inh) 1 Puff Inha 2 PUFF IH BID (Reported) Duloxetine (Duloxetine) 30 Mg Capsule.dr 30 MG PO DAILY (Reported) In addition to 60mg daily Duloxetine (Duloxetine) 60 Mg Capsule.dr 60 MG PO DAILY (Reported) Fentanyl 25 mcg/hr Patch (Fentanyl 25 mcg/hr Patch) 1 Each Patch.td72 25 MCG TOP Q72Hrs (Reported) Montelukast (Montelukast) 10 Mg Tablet 10 MG PO HS (Reported) Tiotropium [place] (Spiriva) 18 Mcg Cap.w.dev 18 MCG IH AM (Reported) As needed Albuterol Sulfate (Ventolin HFA Inhaler) 200 Puff/18 Gm Inhaler 2 PUFF INH Q4 PRN PRN For Wheezing (Reported) Ipratropium/Albuterol Sulfate (Iprat-Albut 0.5-3(2.5) mg/3 mL Inhalant Soln) 3 Ml Ampul.neb 3 ML IH TID PRN PRN PRN (Reported) oxyCODONE (oxyCODONE) 10 Mg Tablet 10 MG PO Q4H PRN PRN For Pain (Reported) Followup Plan Disposition: Home with in improved condition. Follow-up plan Follow up with PCP in 1 week following discharge for further evaluation. Discharge Diet: No restrictions, Diabetic Discharge Activity: No restrictions Follow-up with PCP in: 1 week Time spent 45 minutes copies to: Fazal Espinosa MD, Benjamin P DO February 21, 2017 08:10
[2017-02-21] MEDS ORDERED: PRED-508 PO (08:11)
--- NOTE | 2017-02-21 08:12 | PCM.DIMED ---
Discharge Instructions Date of Service February 21, 2017 Dates of Hospitalization February 19, 2017 at 11:17 Discharge Diagnosis Discharge Diagnosis 1. COPD exacerbation 2. Diabetes mellitus type II: Diet No restrictions, Diabetic Activity No restrictions Patient Instructions Follow-up plan Follow up with PCP in 1 week following discharge for further evaluation. Follow-up with PCP in: 1 week Kevin Shrestha DO February 21, 2017 08:12
[2017-02-21] MEDS ORDERED: DULoxetine 30 mg DR Capsule PO SCH (08:30)
[2017-02-21 08:53] VITALS: RESP 16; O2SAT 95
[2017-02-21 09:01] LABS: Mean Corpuscular Hemoglobin 34.2 pg (27.0-35.0); Mean Corpuscular Volume 99.3 fL (81-100); Platelet Count 398 bil/L (150-400)
[2017-02-21] MEDS: ARIPiprazole 10 mg Tablet PO SCH (09:05)
[2017-02-21] MEDS: DULoxetine 30 mg DR Capsule PO SCH (09:06)
[2017-02-21] MEDS: predniSONE 20 mg Tablet PO SCH (09:07)
[2017-02-21 09:35] LABS: BASOPHILS % (AUTO) 0 % (0-3); EOSINOPHILS % (AUTO) 1 % (0-5); MONOCYTES % (AUTO) 7 % (4-12); NEUTROPHILS % (AUTO) 70 % (40-74)
[2017-02-21] MEDS: Fluticasone-Salmererol 250-50 Inhaler INHALATION SCH (10:11)
[2017-03-03] MEDS ORDERED: VARE1TAB21 PO (08:14)
[2017-03-03] MEDS ORDERED: HYDR-656 PO (08:14)
== END 2017-02-21 10:40 | disposition home or self-care (01) | DRG 191 ==
LOC: SED 08:35 → MPC 11:17
PROVIDERS: ADMIT Family Medicine; ATTEND Family Medicine
DX: J44.1 Chronic obstructive pulmonary disease with (acute) exacerbation (principal); C86.5 Angioimmunoblastic T-cell lymphoma; J96.10 Chronic respiratory failure, unspecified whether with hypoxia or hypercapnia; Z90.12 Acquired absence of left breast and nipple; Z87.891 Personal history of nicotine dependence; E11.9 Type 2 diabetes mellitus without complications; F39 Unspecified mood [affective] disorder; F32.9 Major depressive disorder, single episode, unspecified; F41.9 Anxiety disorder, unspecified; G89.29 Other chronic pain; D72.829 Elevated white blood cell count, unspecified; Z99.81 Dependence on supplemental oxygen

== ENCOUNTER 2017-06-12 12:17 | Observation (INO) | payer MEDICARE, MEDICAID ==
[2017-06-12] VITALS (11 sets, daily range): BP systolic 97–119; BP diastolic 45–84; PULSE 71–97; RESP 14–20; O2SAT 92–100
[~2017-06-12] VITALS: Ht 157.5 cm; Wt 82.2 kg
[~2017-06-12 12:17] MED LIST changes: +ARIP10TA16 PO; -ARIP5TAB5 PO; -AZIT250T4 PO; +DULO30CA50 PO; +DULO60CA61 PO; -FENT1PAT11 TRANSDERM; +FENT1PAT7 TOP; +HYDR-656 PO; -MONT10TA20 PO; +MONT10TA23 PO; -PRE20 PO; +PRED-508 PO; +VARE1TAB21 PO
--- NOTE | 2017-06-12 13:02 | ED.REPORT ---
HPI-Dyspnea / Wheezing Date of Service Jun 12, 2017 ED Provider: Donald Hopkins MD Pt is a 56 year old female with a history of COPD, HTN, and DM who presents to the ED complaining of SOB onset 1 week ago. She c/o associated cough, nausea, diaphoresis. She denies fever and vomiting. Pt reports that her symptoms feel similar to her COPD. The pt last used a nebulizer at 10:00 today with minimal relief. Per pt, she has been taking amoxicillin and finished taking 40mg steroids yesterday. Pt presented to the ED on 02/19/17 with similar symptoms and she was admitted for severe COPD exacerbation. Nursing Notes Stated Complaint: HARD TIME BREATHING Chief Complaint: Respiratory Complaints Nursing Notes Reviewed: Yes ([employer], [employer] not reconciled) Allergies: Coded Allergies: sumatriptan (Unverified Allergy, Severe, neuro sensation, 02/19/17) codeine (Verified Allergy, Intermediate, itching, nausea, 02/19/17) [id number] Antimigraine Agents (Verified Allergy, Unknown, strange feeling in head, 02/19/17) NSAIDS (Non-Steroidal Anti-Inflamma (Verified Adverse Reaction, Severe, Nausea,Vomiting, 02/19/17) acetaminophen (Verified Adverse Reaction, Severe, r/t liver damage, 02/19/17 ) nicotine (Verified Adverse Reaction, Severe, Rash,Itching,, 02/19/17) aspirin (Verified Adverse Reaction, Intermediate, Abdominal Pain, nausea, hx liver injury, 02/19/17) Scheduled Amoxicillin (Amoxicillin) 500 Mg Capsule 500 MG PO TID Budesonide/Formoterol 160-4.5 mcg Inh (Symbicort 160-4.5 mcg Inh) 1 Puff Inha 2 PUFF IH BID Duloxetine (Duloxetine) 60 Mg Capsule.dr 60 MG PO DAILY Fentanyl 25 mcg/hr Patch (Fentanyl 25 mcg/hr Patch) 1 Each Patch.td72 25 MCG TOP Q72Hrs Montelukast (Montelukast) 10 Mg Tablet 10 MG PO QAM Tiotropium [place] (Spiriva) 18 Mcg Cap.w.dev 18 MCG IH AM Scheduled PRN Albuterol Sulfate (Ventolin HFA Inhaler) 200 Puff/18 Gm Inhaler 2 PUFF INH Q4 PRN PRN For Wheezing Ipratropium/Albuterol Sulfate (Iprat-Albut 0.5-3(2.5) mg/3 mL Inhalant Soln) 3 Ml Ampul.neb 3 ML IH TID PRN PRN PRN oxyCODONE (oxyCODONE) 10 Mg Tablet 10 MG PO q3-4h PRN PRN For Pain General Time Seen by MD: 12:59 Chief Complaint Shortness of breath Hx Obtained From: Patient Arrived By: Walk-in Onset Occurred: 1 week ago Symptom Duration: Since onset Severity: Current: No pain currently Severity: Maximum: No pain Recent Healthcare: No recent doctor visit, No recent hospitalization Similar Sx Previous: Yes Past Medical History Past Medical History Notes: COPD exacerbation and pneumonia (last admit 02/2017) Past Medical History Angioimmunoblastic T-cell lymphoma, with hemolytic anemia followed by Dr. Lincoln. Chronic pain with narcotic dependence Inflamed ducts, left breast, requiring mastectomy Migraines Chronic respiratory failure, with oxygen/steroid dependent COPD Cervical stenosis with myeloradiculopathy s/p C3-C4, C4-C5, and C5-C6 anterior cervical diskectomy and fusion performed by Dr. Rashawn Joe, Oct 2011 Migraine headaches. Report of seizure disorder history Hypothyroidism. Distant history of seizures. 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 Reports: COPD, Diabetes mellitus, Hypertension Reports: Depression (anxiety requiring benzodiazepines), Migraines Past Surgical History Splenectomy due to trauma Left mastectomy Lumbar spine surgery, cervical spine surgery Sinus surgery for deviated septum, Exploratory laparotomy for bowel obstruction Hernia repair Power port Reports: Appendectomy, , Tonsillectomy Reports: Portocath Family History Noncontributory Smoking History Former Smoker Social History Alcohol Use: Denies alcohol use Drug Use: THC Other Social History: Good social support, Local resident Ambulatory Status Independent Review of Systems Constitutional: Denies: Fever Respiratory: Reports: Non-productive cough, Shortness of breath Skin: Reports Diaphoresis Complete sys rev & neg: except as marked. GI: Reports: Nausea, Denies: Vomiting Physical Exam Initial Vital Signs Vital Signs (First) Date Time Temp Pulse Resp B/P Pulse Ox O2 Delivery O2 Flow Rate FiO2 06/12/17 12:51 36.7 89 14 119/84 96 06/12/17 13:46 Aerosol Mask 8 Initial VS: Reviewed, Vital signs normal Head / Eyes: Atraumatic, Normocephalic Abdomen / GI: Soft, Non-tender Extremities: Vascular intact, Neuro intact Skin: Warm, Dry, No cyanosis Neurologic: Alert, Oriented, Nonfocal Psychiatric: Mood/affect normal, Behavior normal General/Constitutional: Awake, Alert Distress / Hydration: Positive: Distress moderate Neck: Atraumatic, Full range of motion RESPIRATORY/CHEST: She has a 5 word dypsnea. She has significant bilateral brochospasms with dimished breath sounds and poor air movement. Cardiovascular: Heart rate NL, Regular rhythm, Heart sounds NL Heart Rate / Rhythm: Negative: Tachycardia She has no edema present. Interpretation & Diagnostics Lab Results Interpretation Result Diagram: 06/12/17 1410 06/12/17 1410 Test 06/12/17 14:10 White Blood Count 18.2th/mm3 (3.8-10.1) Red Blood Count 4.25mil/mm3 (3.90-5.20) Hemoglobin 14.2g/dL (12.0-15.6) Hematocrit 42.0% (35.0-46.0) Mean Corpuscular Volume 98.8fL (81-100) Mean Corpuscular Hemoglobin 33.4pg (27.0-35.0) Mean Corpuscular Hemoglobin Concent 33.8% (32.0-37.0) Red Cell Distribution Width 14.1% (12.3-15.4) Platelet Count 419bil/L (150-400) Neutrophils (%) (Auto) 56.9% (40-74) Lymphocytes (%) (Auto) 29.0% (14-46) Monocytes (%) (Auto) 11.5% (4-12) Eosinophils (%) (Auto) 1.3% (0-5) Basophils (%) (Auto) 0.5% (0-3) Sodium Level 142mEq/L (134-144) Potassium Level 4.2mEq/L (3.5-5.2) Chloride Level 100mEq/L (97-108) Carbon Dioxide Level 26mmol/L (18-29) Blood Urea Nitrogen 8mg/dL (6-24) Creatinine 0.65mg/dL (0.57-1.00) Estimat Glomerular Filtration Rate 135mL/min (>59) Glucose Level 128mg/dL (60-99) Lactic Acid Level 1.9mmol/L (0.4-2.0) Calcium Level 9.3mg/dL (8.5-10.1) Total Bilirubin 0.4mg/dL (0.0-1.2) Aspartate Amino Transf (AST/SGOT) 42U/L (0-50) Alanine Aminotransferase (ALT/SGPT) 108U/L (0-32) Alkaline Phosphatase 144U/L (25-150) Troponin T < 0.010ug/L (0.0-0.011) Pro-B-Type Natriuretic Peptide 210.8pg/mL (0-287) Total Protein 6.6g/dL (6.4-8.4) Albumin 4.3g/dL (3.4-5.0) Lab Results Interpretation: CBC leukocytosis-the patient has chronic leukocytosis, usually is much higher CMP normal Lactic acid normal troponin negative BMP negative ECG Interpretation ECG Interpretation: No abnormalities Time: 13:15 Interpreted by: ED physician Normal ECG Interpretation: Normal sinus rhythm (with a rate of 74) X-Ray Chest Interpretation Chest Xray Interpretation: IMPRESSION: No acute cardiopulmonary disease. Dictated by: Mahogany Michele M.D. on 06/12/2017 at 13:58 View: Portable, 1 view Interpretation / Wet Read by: Interpret - Radiologist Re-Eval/Medical Decision Med Decision/Clinical Course This is a 56-year-old female. History of COPD secondary to smoking presents with increasing shortness breath the past week which he says is typical of her COPD exacerbations. She has been using her home nebulizers increase in frequency with no relief. She denies fevers chills reports a chronic cough that sounds fairly different her newly productive, denies chest pain, nausea or vomiting. On exam she is dipstick, more so than it is reflected by the vitals in [facility]- with 3-4 dyspnea, and is profoundly bronchospastic with poor air movement. Febrile, or hypoxic. She has no clinical findings of heart failure or DVT evidence. She received multiple rounds of albuterol and Atrovent, received steroids, magnesium-it is improved, but remains persistently bronchospastic and dyspneic. Chest x-ray is negative, blood work is notable for the chronic leukocytosis but otherwise normal. Given the persistent symptoms patient is being admitted for continued management. Case has been discussed with hospitalist. Source of Hx: Old records Re-Evaluation/Progress : Time of Eval: 14:19 Re-Evaluation/Progress Note: Pt rechecked. Pt reports mild improvement. Informed pt of plan for admission. Pt understands and agrees with plan for admission. All questions addressed. Consultation : Consulted With: Hospitalist Call Returned at: 16:14 Mica Builder: Will see patient, Agrees with eval, Agrees with plan, Accepts admit Differential Diagnosis: Positive: COPD exacerbation, Respiratory insufficiency , Negative: Acute coronary syndrome, Airway obstruction, Hypertensive emergency , Myocardial infarction, Pneumonia, Pneumothorax, Respiratory failure Counseled Regarding: Diagnosis, Lab results, Need for admission Discharge & Departure Impression: Primary Impression: COPD with acute exacerbation Additional Impression: Leukocytosis Disposition: ADMITTED TO HOSPITAL Discharge Condition All VS Reviewed: Yes Condition: Stable Referrals: Sumanth Montes (PCP) Catherineibserina Attestation Portions of this note were transcribed by Domenica Shell. I, Dr. Hopkins personally performed the history, physical exam and medical decision-making; I reviewed and confirmed the accuracy of the information in the transcribed note. Signed by: Catherine Mar, 06/12/17. copies to: Sumanth Montes Matthew F MD Jun 12, 2017 13:02 Domenica Damian Jun 12, 2017 13:10
[2017-06-12] MEDS ORDERED: MethylprednisoLONE Sodium Succinate 62.5 mg/mL 2 mL Inj IVPUSH ONE (13:05)
[2017-06-12] MEDS ORDERED: Magnesium Sulf 2 Gm/50mL Water 2 GM in IV Premix 1 EACH IV ONE (13:05)
[2017-06-12] MEDS ORDERED: Albuterol 2.5 mg/3 mL Inhalation Solution NEB ONE ×2 (13:05→13:10)
[2017-06-12] MEDS ORDERED: Ipratropium 0.02% 0.5 mg/2.5 mL Inhalation Solution NEB ONE (13:05)
[2017-06-12] MEDS ORDERED: Ondansetron 2 mg/mL 2 mL Inj IVPUSH ONE (13:05)
--- NOTE | 2017-06-12 14:02 | DRSVH ---
PROCEDURE: X-RAY CHEST ONE VIEW, PORTABLE ([id number]) INDICATIONS: SHORT OF BREATH TECHNIQUE: One view of the chest was acquired. COMPARISON: Located Within [facility], CR, XR CHEST 2VW, 06/13/2016, 13:35. Located Within [facility], CR, XR CHEST 1VW (PORTABLE), 08/01/2016, 11:08. Located Within [facility], CT, CT NECK CHEST ABD PELVIS W CON, 01/01/2017, 11:12. Located Within [facility], CR, XR CHEST 2VW, 03/31/2017, 14:45. [facility], CR, XR CHEST 1VW (PORTABLE), 02/19/2017, 8:50. FINDINGS: Surgical changes and devices: There is a surgical clip in the right neck. Lungs and pleura: No pleural effusions or pneumothorax. Lungs are clear. Mediastinum: Mediastinal contours appear normal. Heart size is normal. Bones and chest wall: No suspicious bony lesions. Overlying soft tissues appear unremarkable. IMPRESSION: No acute cardiopulmonary disease. Dictated by: Mahogany Michele M.D. on 06/12/2017 at 13:58 Approved by: Mahogany Michele M.D. on 06/12/2017 at 14:00
[2017-06-12 14:14] LABS: BASOPHILS % (AUTO) 0.5 % (0-3); EOSINOPHILS % (AUTO) 1.3 % (0-5); MONOCYTES % (AUTO) 11.5 % (4-12); Mean Corpuscular Hemoglobin 33.4 pg (27.0-35.0); Mean Corpuscular Volume 98.8 fL (81-100); NEUTROPHILS % (AUTO) 56.9 % (40-74); Platelet Count 419 bil/L (150-400)
[2017-06-12 14:44] LABS: TROPONIN T < 0.010 ug/L (0.0-0.011)
[2017-06-12] MEDS ORDERED: AMOX500C2 PO (15:55)
[2017-06-12] MEDS ORDERED: Ondansetron 2 mg/mL 2 mL Inj IVPUSH PRN (16:35)
[2017-06-12] MEDS ORDERED: HYDROcodone-APAP 5-325 mg Tablet PO ONE (16:35)
[2017-06-12] MEDS ORDERED: Alum-Mag Hydrox-Simeth 30 mL Suspension PO PRN ×2 (16:35→16:55)
[2017-06-12] MEDS ORDERED: Polyethylene Glycol (PEG) 17 Gm Powder PO PRN (16:55)
--- NOTE | 2017-06-12 17:17 | PCM.HPMED ---
Subjective Date of Service Jun 12, 2017 Primary Provider: Admitting Physician: Bijan Clay MD Primary Care Physician: Tutu Juan MD Attending Physician: Bijan Clay MD History of Present Illness: From Chart, Patient, ER: Pt is a 56 year old female with past medical history of COPD, T Cell lymphoma ( in remission ) who presents to the ED complaining of SOB onset 1 week ago. She c /o associated cough, nausea, diaphoresis. She denies fever and vomiting. Pt reports that her symptoms feel similar to her COPD. The pt last used a nebulizer at 10:00 today with minimal relief. Per pt, she has been taking amoxicillin and finished taking 40mg steroids yesterday. Patient denies being around anyone sick. No recent travels. She denies productive cough at this point. No other complaints at this point. Patient added that she was here in the hospital in February for similar symptoms. She does follow up with a thermal technician outpatient. Allergies Coded Allergies: sumatriptan (Unverified Allergy, Severe, neuro sensation, 02/19/17) codeine (Verified Allergy, Intermediate, itching, nausea, 02/19/17) [id number] Antimigraine Agents (Verified Allergy, Unknown, strange feeling in head, 02/19/17) NSAIDS (Non-Steroidal Anti-Inflamma (Verified Adverse Reaction, Severe, Nausea,Vomiting, 02/19/17) acetaminophen (Verified Adverse Reaction, Severe, r/t liver damage, 02/19/17 ) nicotine (Verified Adverse Reaction, Severe, Rash,Itching,, 02/19/17) aspirin (Verified Adverse Reaction, Intermediate, Abdominal Pain, nausea, hx liver injury, 02/19/17) PMH Angioimmunoblastic T-cell lymphoma, with hemolytic anemia followed by . Depression, anxiety requiring benzodiazepines Chronic pain with narcotic dependence Inflamed ducts, left breast, requiring mastectomy Migraines Chronic respiratory failure, with oxygen/steroid dependent COPD Cervical stenosis with myeloradiculopathy s/p C3-C4, C4-C5, and C5-C6 anterior cervical diskectomy and fusion performed by Dr. Rashawn Joe, Oct 2011 Migraine headaches. Report of seizure disorder history Hypothyroidism. Distant history of seizures. 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 COPD, Diabetes mellitus, Hypertension Surgical History Splenectomy due to trauma Left mastectomy Lumbar spine surgery, cervical spine surgery Sinus surgery for deviated septum, Exploratory laparotomy for bowel obstruction Hernia repair Power port Appendectomy, , Tonsillectomy Portocath Social History Hx Alcohol Use: Yes (rare) Hx Substance Use: Yes (marijuana daily.) Hx Tobacco Use: Yes (0.5 ppd) Smoking Status: Former Smoker Exam Vital Signs Vital Sign - Last Date Time Temp Pulse Resp B/P Pulse Ox O2 Delivery O2 Flow Rate FiO2 06/12/17 16:51 37.0 80 18 107/69 96 Nasal Cannula 2.00 Exam General: Alert, Oriented X3, Cooperative, Mild Distress Eyes: EOMI Mouth: Mucous Membr Moist/[place] Neck: Supple Chest & Lungs: Clear to auscultation & percussion, Coarse breath sounds, Expiratory wheezes Cardiovascular: Regular Rate/Rhythm Abdomen: Non-tender, Non-distended Extremities: No cyanosis/clubbing/edma bilat Neurological: Grossly Neurologically Intact Lab and Diagnostics Result Diagram: 06/12/17 1410 06/12/17 1410 X-Rays, CTs and MRIs CXR - No acute cardiopulmonary pathologies Assessment & Plan 56-year-old female with COPD placed on hospital observation for severe exacerbation not responsive to initial steroid burst therapy. 1. COPD exacerbation - continue prednisone 40mg daily, duonebs - leukocytosis noted, likely related to reason steroid use - will order resp viral panel, urine antigen for legionella and strep pneumo - will get procalcitonin level - patient is on home oxygen will be provided supplement oxygen as needed during this hospitalization. Generally its only required sleep. - continue home spiriva 2.Elevated ALT - isolated , has had a history of elevation in the past - AST, bilirubin, and ALT normal - no physical signs or symptoms - continue to trend 3. Mood disorder with anxiety and depression symptoms - We will continue to Cymbalta current outpatient dosage, in addition to Abilify. 4. 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 - We will continue all medications at this time, consider further adjustments as needed for pain not responsive to outpatient therapy. 5.Angioimmunoblastic T-cell lymphoma - in remission, follows up with Dr. Lincoln outpatient - no interventions or workup required inpatient Patient likely to stay < 2 nights. Pain Evaluation: Adequate Pain Control Resuscitation Status: CPR: Attempt Resuscitation Time spent 35 mins Bijan Clay MD Jun 12, 2017 17:16
[2017-06-12] MEDS: 0.9% Sodium Chloride 1,000 ML IV SCH (17:39)
--- NOTE | 2017-06-12 17:49 | NUR ---
Social Work: Initial Assessment Data: See Initial Assessment for additional information. EMR reviewed. Pt is a 56 y/o female admitted 06/12/17. Pt's PCP is Dr Juan, pt's insurance is Medicare with [facility] supp. Readmit risk score is not listed at this time. CLAIMS SERVICE REPRESENTATIVE met with pt at bedside, role explained. Pt confirms she lives in [place] in a single story home with her spouse where she uses no DME. Pt is not homebound and drives. Pt states she has hx with unknown HH company, no SNF hx, no LTC or VA benefits, and is not a caregiver. Pt states her spouse plans to pick her up at d/c. Pt declined DPOA information. Pt provided with discharge planning checklist, phone number and plan written on whiteboard. No d/c planning needs anticipated. CLAIMS SERVICE REPRESENTATIVE will continue to follow if needs arise. Assessment: Pt who is independent at baseline. Plan: Pt anticipated to d/c home with her via POV. No d/c planning needs anticipated. CLAIMS SERVICE REPRESENTATIVE will continue to follow if needs arise. ZENAIDA Cole Addendum: 06/12/17 at 1752 by PRANEETH ACOSTA Amended: Links added.
[2017-06-12 17:59] LABS: APPEARANCE,URINE CLEAR (CLEAR,HAZY); COLOR,URINE YELLOW (YELLOW); OCCULT BLOOD,URINE NEGATIVE (NEGATIVE); UROBILINOGEN,URINE NORMAL (NORMAL)
--- NOTE | 2017-06-12 18:38 | NUR ---
Admit Pt brought to room 1021 at 1610 in bed. Able to ambulate safely to BR. Pt sating 96% on 2L, weaned off to room air and is at 92%. Pt states she normally uses 2L only at night. Pt has pain 8/10, but given meds in ED and has history of chronic pain. Fentanyl patch in place on left deltoid and states it is due to be changed tomorrow 06/13/17. A&O x 3, GAYTAN, VSS, states BP's normally run low. Pt oriented to room and call light.
[2017-06-12] MEDS: Fluticasone-Salmeterol 500-50 Inhaler INHALATION SCH (20:11)
[2017-06-12] MEDS: Ondansetron 2 mg/mL 2 mL Inj IVPUSH PRN (20:11)
[2017-06-12] MEDS: Albuterol-Ipratropium 3 mL Inhalation Solution NEB SCH (20:29)
[2017-06-13] VITALS (12 sets, daily range): BP systolic 100–121; BP diastolic 63–76; PULSE 61–93; RESP 16–20; O2SAT 90–99
[2017-06-13] MEDS: Heparin 5,000 Unit/mL Inj SUBQ SCH ×4 (00:11→23:59)
[2017-06-13] MEDS: Albuterol-Ipratropium 3 mL Inhalation Solution NEB SCH ×7 (00:27→23:57)
[2017-06-13] MEDS: Ondansetron 2 mg/mL 2 mL Inj IVPUSH PRN ×3 (00:48→22:10)
[2017-06-13] MEDS: 0.9% Sodium Chloride 1,000 ML IV SCH ×3 (04:00→22:32)
--- NOTE | 2017-06-13 04:32 | NUR ---
Pain Pt medicated with oxycodone 10mg x2 for chronic back pain with some relief reported. Denies N/V/D, resp distress and/or SOB. On 2l via nc at 93%. Denies N/V/D, resp distress and/or SOB. Alert, oriented, pleasant and able to make needs known. No behavioral or safety issue noted. care continues.
[2017-06-13 06:06] LABS: BASOPHILS % (AUTO) 0.1 % (0-3); EOSINOPHILS % (AUTO) 0 % (0-5); MONOCYTES % (AUTO) 5.4 % (4-12); Mean Corpuscular Hemoglobin 33.5 pg (27.0-35.0); Mean Corpuscular Volume 99.5 fL (81-100); NEUTROPHILS % (AUTO) 84.6 % (40-74); Platelet Count 390 bil/L (150-400)
[2017-06-13] MEDS: predniSONE 20 mg Tablet PO SCH (09:09)
[2017-06-13] MEDS: DULoxetine 30 mg DR Capsule PO SCH (09:09)
[2017-06-13] MEDS: Fluticasone-Salmeterol 500-50 Inhaler INHALATION SCH ×2 (09:10→21:33)
[2017-06-13] MEDS ORDERED: Glucose 40% Oral Gel 15 Gm Tube PO PRN (09:35)
--- NOTE | 2017-06-13 12:31 | NUR ---
Case Management: REGINA given and explained to pt. Vira JEAN BAPTISTERN
[2017-06-13] MEDS: Insulin LISPRO 300 Unit/3 mL Inj SUBQ SCH ×3 (13:08→22:10)
--- NOTE | 2017-06-13 14:35 | PCM.PNMED ---
Subjective Date of Service Jun 13, 2017 Subjective Patient seen and examined. Feeling much better today. Breathing is better. Vitals stable. Exam Vital Signs Vital Sign - Last Date Time Temp Pulse Resp B/P Pulse Ox O2 Delivery O2 Flow Rate FiO2 06/13/17 14:05 72 16 94 Room Air 06/13/17 12:10 36.1 101/66 06/13/17 09:16 2.00 Intake and Output 06/12/17 06/12/17 06/13/17 Cumulative From/Thru 15:00 23:00 07:00 06/12/17 12:51 - 06/13/17 06:41 Intake Total 200 ml 1786 ml 1986 ml Output Total 400 ml 1500 ml 1900 ml Balance -200 ml 286 ml 86 ml Intake Oral 200 ml 600 ml 800 ml IV Total 1186 ml 1186 ml Output Urine Total 400 ml 1500 ml 1900 ml # Voids 1 1 Exam General: Alert, Oriented X3, Cooperative, Mild Distress Eyes: EOMI Mouth: Mucous Membr Moist/[place] Neck: Supple Chest & Lungs: Clear to auscultation & percussion, Coarse breath sounds, Expiratory wheezes, improved Cardiovascular: Regular Rate/Rhythm Abdomen: Non-tender, Non-distended Extremities: No cyanosis/clubbing/edma bilat Neurological: Grossly Neurologically Intact Lab and Diagnostics Result Diagram: 06/13/17 0510 06/13/17 1206 X-Rays, CTs and MRIs CXR - No acute cardiopulmonary pathologies Assessment & Plan 56-year-old female with COPD placed on hospital observation for severe exacerbation not responsive to initial steroid burst therapy. 1. COPD exacerbation - continue prednisone 40mg daily, duonebs - leukocytosis noted, likely related to reason steroid use - resp panel positive for rhino virus - patient is on home oxygen will be provided supplement oxygen as needed during this hospitalization. Generally its only required sleep. - continue home spiriva 2.Elevated ALT - isolated , has had a history of elevation in the past - AST, bilirubin, and alkaline phosphate normal - no physical signs or symptoms - continue to trend , will get abdominal IS 3. Mood disorder with anxiety and depression symptoms - We will continue to Cymbalta current outpatient dosage, in addition to Abilify. 4. 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 - We will continue all medications at this time, consider further adjustments as needed for pain not responsive to outpatient therapy. 5.Angioimmunoblastic T-cell lymphoma - in remission, follows up with Dr. Lincoln outpatient - no interventions or workup required inpatient Patient likely to stay < 2 nights. VTE Mechanical Devices: Intermittant Pneumatic CD Resuscitation Status: CPR: Attempt Resuscitation Time spent 35 mins Bijan Clay MD Jun 13, 2017 14:35
--- NOTE | 2017-06-13 14:59 | DRSVH ---
PROCEDURE: US ABDOMEN INDICATIONS: Elevated LFT TECHNIQUE: Real-time scanning was performed of the abdominal and retroperitoneal organs, with image documentatio n. COMPARISON: [facility] Ultrasound, US, ABDOMEN SONOGRAM, 11/25/2014, 16:39. FINDINGS: Liver length: 19.07 cm Gallbladder Wall Thickness: 2.7 mm CHD: 2 mm CBD: 6.10 mm Spleen length: Surgically absent. Right kidney length: 11.38 cm Left kidney length: 12.01 cm Aorta(Proximal): 2.43 cm Aorta(Mid): 1.52 cm Aorta(Distal): 1.39 cm RCIA: 1.57 cm LCIA: 1.46 cm Liver: Liver is diffusely increased in echogenicity. No focal hepatic abnormalities identified. No rmal hepatic size. Right hepatic lobe cyst measuring roughly 9 mm. Gallbladder: Surgically absent. Biliary ducts: Intrahepatic bile ducts are non-dilated. Extrahepatic bile duct caliber is normal. Normal is 6-7 mm or less in diameter, or 10 mm or less post-cholecystectomy. Pancreas: Visualized portions of the pancreas are sonographically normal. Spleen: Spleen is normal in size and homogeneous in echotexture. Kidneys: Kidneys are normal in size and echotexture. No hydronephrosis or nephrolithiasis. No rey d masses. Aorta: Visualized aorta is normal in caliber at less than 3 cm. Iliacs: Proximal common iliac arteries are normal in caliber at less than 2.5 cm. IVC: Intrahepatic inferior vena cava is patent. Miscellaneous: No free abdominal fluid. IMPRESSION: 1. Increased hepatic echogenicity noted likely related to fatty infiltration of the liver but other s ources of hepatocellular disease cannot be excluded. Recommend clinical correlation. 2. Subcentimeter right hepatic cyst. Dictated by: Armani Henley [facility] Interpreted: Jo Ann Mukherjee MD on 06/13/2017 at 10:19 Approved by: Jo Ann Mukherjee M.D. on 06/13/2017 at 14:57
--- NOTE | 2017-06-13 19:05 | NUR ---
Activity Pt sating at 88-92% on RA, occasionally needs 1L NC while sleeping during day shift. Taking medications q4 for chronic back pain and new Fentanyl patch applied to right deltoid. Pt up independently in room. Was placed on precautions for positive rhino virus and notified. Pt also stated that her was recently diagnosed with hepatitis C and could she also have it. MD notified and labs had already been ordered.
[2017-06-14] VITALS (12 sets, daily range): BP systolic 106–157; BP diastolic 63–82; PULSE 61–89; RESP 16–20; O2SAT 90–96
[2017-06-14] MEDS: Albuterol-Ipratropium 3 mL Inhalation Solution NEB SCH ×5 (04:30→20:13)
--- NOTE | 2017-06-14 05:02 | NUR ---
Pain Pain well controlled with prn oral medications and fentanyl patch. Breathing unchanged, chest pain related to cough continues. High volume urine output. Hourly rounding ongoing.
[2017-06-14 05:44] LABS: BASOPHILS % (AUTO) 0.2 % (0-3); EOSINOPHILS % (AUTO) 0.3 % (0-5); MONOCYTES % (AUTO) 8.3 % (4-12); Mean Corpuscular Hemoglobin 33.7 pg (27.0-35.0); NEUTROPHILS % (AUTO) 68.5 % (40-74); Platelet Count 369 bil/L (150-400)
[2017-06-14] MEDS: Insulin LISPRO 300 Unit/3 mL Inj SUBQ SCH ×4 (08:00→21:18)
[2017-06-14] MEDS: predniSONE 20 mg Tablet PO SCH (08:29)
[2017-06-14] MEDS: DULoxetine 30 mg DR Capsule PO SCH (08:29)
[2017-06-14] MEDS: Ondansetron 2 mg/mL 2 mL Inj IVPUSH PRN (08:30)
[2017-06-14] MEDS: Heparin 5,000 Unit/mL Inj SUBQ SCH ×2 (08:30→16:36)
[2017-06-14] MEDS: Fluticasone-Salmeterol 500-50 Inhaler INHALATION SCH ×2 (08:31→20:10)
--- NOTE | 2017-06-14 08:31 | PCM.PNMED ---
Subjective Date of Service Jun 14, 2017 Subjective Patient seen and examined today. She mentioned that her was diagnosed with Hep C 6 months ago. Vitals noted. Exam Vital Signs Vital Sign - Last Date Time Temp Pulse Resp B/P Pulse Ox O2 Delivery O2 Flow Rate FiO2 06/14/17 08:22 36.5 83 18 106/63 92 Room Air 06/13/17 23:57 2.00 Intake and Output 06/13/17 06/13/17 06/14/17 Cumulative From/Thru 15:00 23:00 07:00 06/12/17 12:51 - 06/14/17 06:48 Intake Total 1040 ml 760 ml 3786 ml Output Total 1900 ml 3600 ml 7400 ml Balance -860 ml -2840 ml -3614 ml Intake Oral 1040 ml 760 ml 2600 ml IV Total 1186 ml Output Urine Total 1900 ml 3600 ml 7400 ml # Voids 0 1 # Bowel Movements 0 0 0 Exam General: Alert, Oriented X3, Cooperative, Mild Distress Eyes: EOMI Mouth: Mucous Membr Moist/[place] Neck: Supple Chest & Lungs: Clear to auscultation & percussion, Coarse breath sounds, Expiratory wheezes, improved Cardiovascular: Regular Rate/Rhythm Abdomen: Non-tender, Non-distended Extremities: No cyanosis/clubbing/edma bilat Neurological: Grossly Neurologically Intac Lab and Diagnostics Result Diagram: 06/14/17 0500 06/14/17 0500 X-Rays, CTs and MRIs CXR - No acute cardiopulmonary pathologies Additional Diagnostics US abd IMPRESSION: 1. Increased hepatic echogenicity noted likely related to fatty infiltration of the liver but other sources of hepatocellular disease cannot be excluded. Recommend clinical correlation. 2. Subcentimeter right hepatic cyst. Assessment & Plan 56-year-old female with COPD placed on hospital observation for severe exacerbation not responsive to initial steroid burst therapy. 1. COPD exacerbation - continue prednisone 40mg daily, duonebs - leukocytosis noted, likely related to reason steroid use - resp panel positive for rhino virus - patient is on home oxygen will be provided supplement oxygen as needed during this hospitalization. Generally its only required sleep. - continue home spiriva 2.Elevated ALT - isolated , has had a history of elevation in the past - AST, bilirubin, and alkaline phosphate normal - no physical signs or symptoms - continue to trend , abdominal US as noted above - heptatits panel pending, patient mentioned her was diagnosed with Hep C 6 months ago 3. Mood disorder with anxiety and depression symptoms - We will continue to Cymbalta current outpatient dosage, in addition to Abilify. 4. 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 - We will continue all medications at this time, consider further adjustments as needed for pain not responsive to outpatient therapy. 5.Angioimmunoblastic T-cell lymphoma - in remission, follows up with Dr. Lincoln outpatient - no interventions or workup required inpatient Patient likely to stay < 2 nights. VTE Mechanical Devices: Intermittant Pneumatic CD Resuscitation Status: CPR: Attempt Resuscitation Time spent 35 mins Bijan Clay MD Jun 14, 2017 08:31
[2017-06-14] MEDS: 0.9% Sodium Chloride 1,000 ML IV SCH ×2 (08:37→16:34)
--- NOTE | 2017-06-14 11:00 | NUR ---
Pain Pt states ongoing sharp pain in RLQ. Pain on palpation during assessment. Repositioned pt. MD notified. Care continues.
[2017-06-15] MEDS: Albuterol-Ipratropium 3 mL Inhalation Solution NEB SCH ×4 (00:30→12:30)
[2017-06-15 00:35] VITALS: BP 134/88; PULSE 67; RESP 16; O2SAT 98
[2017-06-15] MEDS: Heparin 5,000 Unit/mL Inj SUBQ SCH ×2 (00:55→08:17)
--- NOTE | 2017-06-15 01:52 | NUR ---
Patient asked not to be woken up for a neb tx if she is sleeping. No distress noted vitals 72 HR 98% 2L
--- NOTE | 2017-06-15 02:47 | NUR ---
Pain Pt reporting back pain from -05/29 and has been taking 10 mg Oxycodone with good effect per pt. Pt also has 25 mcg fentanyl patch on right deltoid. Pt is on tele SR 75 per ict help desk technician. Overnight pt has been on 2L O2 via [place], CPOx mid 90s O2 sats.
[2017-06-15] MEDS: 0.9% Sodium Chloride 1,000 ML IV SCH (02:52)
[2017-06-15 05:10] VITALS: BP 146/89; PULSE 66; RESP 16; O2SAT 99
[2017-06-15 06:20] VITALS: PULSE 67
[2017-06-15 07:34] LABS: Mean Corpuscular Hemoglobin 33.2 pg (27.0-35.0); Mean Corpuscular Volume 100.8 fL (81-100); Platelet Count 386 bil/L (150-400)
[2017-06-15 07:44] VITALS: PULSE 70; RESP 18; O2SAT 93
[2017-06-15 07:58] LABS: BASOPHILS % (AUTO) 0.5 % (0-3); EOSINOPHILS % (AUTO) 0.4 % (0-5); MONOCYTES % (AUTO) 11.1 % (4-12); NEUTROPHILS % (AUTO) 61.6 % (40-74)
[2017-06-15] MEDS: predniSONE 20 mg Tablet PO SCH (08:13)
[2017-06-15] MEDS: DULoxetine 30 mg DR Capsule PO SCH (08:13)
--- NOTE | 2017-06-15 08:26 | PCM.DIMED ---
Discharge Instructions Date of Service Jun 15, 2017 Dates of Hospitalization Jun 12, 2017 at 15:11 Discharge Diagnosis Discharge Diagnosis COPD exacerbation Diet Discharge Diet: Heart Healthy Call your provider Call your provider for: Fever or Chills, Chest pain, Excessive diarrhea Patient Instructions Follow-up with PCP in: 1 week Bijan Clay MD Jun 15, 2017 08:26
[2017-06-15] MEDS: Fluticasone-Salmeterol 500-50 Inhaler INHALATION SCH (08:27)
[2017-06-15] MEDS: Insulin LISPRO 300 Unit/3 mL Inj SUBQ SCH ×2 (08:29→12:35)
[2017-06-15 09:07] LABS: Hepatitis A Antibody IgM Negative (Negative); Hepatitis B Core Antibody IgM Negative (Negative)
--- NOTE | 2017-06-15 11:21 | PCM.DC.MED ---
Discharge Summary Date of Service Jun 15, 2017 Dates of Hospitalization Date of Hospital Admission Jun 12, 2017 at 15:11 Date of Discharge: Jun 15, 2017 Providers: Admitting Physician: Bijan Clay MD Primary Care Physician: Tutu Juan MD Attending Physician: Bijan Clay MD Diagnosis at Time of Discharge Diagnosis at Time of Discharge COPD exacerbation Procedures XRay, CTs & MRIs CXR - No acute cardiopulmonary pathologies Other Diagnostics US abd IMPRESSION: 1. Increased hepatic echogenicity noted likely related to fatty infiltration of the liver but other sources of hepatocellular disease cannot be excluded. Recommend clinical correlation. 2. Subcentimeter right hepatic cyst. Brief History From Chart, Patient, ER: Pt is a 56 year old female with past medical history of COPD, T Cell lymphoma ( in remission ) who presents to the ED complaining of SOB onset 1 week ago. She c /o associated cough, nausea, diaphoresis. She denies fever and vomiting. Pt reports that her symptoms feel similar to her COPD. The pt last used a nebulizer at 10:00 today with minimal relief. Per pt, she has been taking amoxicillin and finished taking 40mg steroids yesterday. Patient denies being around anyone sick. No recent travels. She denies productive cough at this point. No other complaints at this point. Patient added that she was here in the hospital in February for similar symptoms. She does follow up with a mens locker room attendant outpatient. Hospital Course 56-year-old female with COPD placed on hospital observation for severe exacerbation not responsive to initial steroid burst therapy. 1. COPD exacerbation - will taper steroids, since she has been on them > 10 days - leukocytosis noted, likely related to reason steroid use - resp panel positive for rhino virus - patient is on home oxygen will be provided supplement oxygen as needed during this hospitalization. Generally its only required sleep. - continue home spiriva 2.Elevated ALT - isolated , has had a history of elevation in the past - AST, bilirubin, and alkaline phosphate normal - no physical signs or symptoms - trended down, US noted as above - heptatits panel pending, patient mentioned her was diagnosed with Hep C 6 months ago , will follow up with results 3. Mood disorder with anxiety and depression symptoms - We will continue to Cymbalta current outpatient dosage, in addition to Abilify. 4. 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 - We will continue all medications at this time, consider further adjustments as needed for pain not responsive to outpatient therapy. 5.Angioimmunoblastic T-cell lymphoma - in remission, follows up with Dr. Lincoln outpatient - no interventions or workup required inpatient Exam Vital Signs (Last) Date Time Temp Pulse Resp B/P Pulse Ox O2 Delivery O2 Flow Rate FiO2 06/15/17 07:44 70 18 93 Room Air 06/15/17 05:10 36.4 146/89 2.00 Test 06/12/17 14:10 06/12/17 17:18 06/14/17 05:00 06/15/17 05:15 Lactic Acid Level 1.9mmol/L (0.4-2.0) Troponin T < 0.010ug/L (0.0-0.011) Pro-B-Type Natriuretic Peptide 210.8pg/mL (0-287) Procalcitonin 0.11ng/mL (0.00-0.08) Urine Color Yellow (YELLOW) Urine Appearance Clear (CLEAR,HAZY) Urine pH 6.0 (5.0-8.0) Urine Specific [place] 1.005 (1.003-1.035) Urine Protein Negativemg/dL (NEG,TRACE) Urine Glucose (UA) Negativemg/dL (NEGATIVE) Urine Ketones Negativemg/dL (NEGATIVE) Urine Occult Blood Negative (NEGATIVE) Urine Nitrite Negative (NEGATIVE) Urine Bilirubin Negative (NEGATIVE) Urine Urobilinogen Normalmg/dL (NORMAL) Urine Leukocyte Esterase Negative (NEGATIVE) Urine RBC 0-2/hpf (0-2) Urine WBC 0-5/hpf (0-5) Urine Epithelial Cells Occasional/hpf (NONE-MOD) Urine Crystals None seen (NONE SEEN) Urine Bacteria Few/hpf (NONE-FEW) Urine Hyaline Casts None/lpf (NONE) Urine Granular Casts None seen (NONE SEEN) Urine Waxy Casts None seen (NONE SEEN) Urine Red Blood Cell Casts None seen (NONE SEEN) Urine White Blood Cell Casts None seen (NONE SEEN) Urine Mucus None seen (None Seen) Urine Trichomonas None seen (NONE SEEN) Urine Yeast None (NONE SEEN) Urinalysis Comment None Urine Culture Reflexed Not indicated Urine Legionella pneumophilia Ag Negative (Negative) Hepatitis C Comment . White Blood Count 23.9th/mm3 (3.8-10.1) Red Blood Count 3.91mil/mm3 (3.90-5.20) Hemoglobin 13.0g/dL (12.0-15.6) Hematocrit 39.4% (35.0-46.0) Mean Corpuscular Volume 100.8fL (81-100) Mean Corpuscular Hemoglobin 33.2pg (27.0-35.0) Mean Corpuscular Hemoglobin Concent 33.0% (32.0-37.0) Red Cell Distribution Width 13.9% (12.3-15.4) Platelet Count 386bil/L (150-400) Neutrophils (%) (Auto) 61.6% (40-74) Lymphocytes (%) (Auto) 25.2% (14-46) Monocytes (%) (Auto) 11.1% (4-12) Eosinophils (%) (Auto) 0.4% (0-5) Basophils (%) (Auto) 0.5% (0-3) Sodium Level 141mEq/L (134-144) Potassium Level 4.5mEq/L (3.5-5.2) Chloride Level 99mEq/L (97-108) Carbon Dioxide Level 28mmol/L (18-29) Blood Urea Nitrogen 15mg/dL (6-24) Creatinine 0.73mg/dL (0.57-1.00) Estimat Glomerular Filtration Rate 118mL/min (>59) Glucose Level 127mg/dL (60-99) Calcium Level 9.4mg/dL (8.5-10.1) Total Bilirubin 0.4mg/dL (0.0-1.2) Aspartate Amino Transf (AST/SGOT) 20U/L (0-50) Alanine Aminotransferase (ALT/SGPT) 62U/L (0-32) Alkaline Phosphatase 127U/L (25-150) Total Protein 6.0g/dL (6.4-8.4) Albumin 4.2g/dL (3.4-5.0) Discharge Medications Discharge Medications Budesonide/Formoterol 160-4.5 mcg Inh (Symbicort 160-4.5 mcg Inh) 1 Puff Inha 2 PUFF IH BID (Reported) Duloxetine (Duloxetine) 60 Mg Capsule.dr 60 MG PO DAILY (Reported) Fentanyl 25 mcg/hr Patch (Fentanyl 25 mcg/hr Patch) 1 Each Patch.td72 25 MCG TOP Q72Hrs (Reported) Montelukast (Montelukast) 10 Mg Tablet 10 MG PO QAM (Reported) Tiotropium [place] (Spiriva) 18 Mcg Cap.w.dev 18 MCG IH AM (Reported) As needed Albuterol Sulfate (Ventolin HFA Inhaler) 200 Puff/18 Gm Inhaler 2 PUFF INH Q4 PRN PRN For Wheezing (Reported) Ipratropium/Albuterol Sulfate (Iprat-Albut 0.5-3(2.5) mg/3 mL Inhalant Soln) 3 Ml Ampul.neb 3 ML IH TID PRN PRN PRN (Reported) oxyCODONE (oxyCODONE) 10 Mg Tablet 10 MG PO q3-4h PRN PRN For Pain (Reported) Followup Plan Discharge Diet: Heart Healthy Follow-up with PCP in: 1 week (discuss increaed LFTs , and exposure to Hep C ) Time spent 35 mins Bijan Clay MD Jun 15, 2017 08:28
--- NOTE | 2017-06-15 11:54 | NUR ---
Social Work- Discharge Data: EMR reviewed. Pt is on day 3 of hospitalization for acute COPD. Pt discussed in multidisciplinary rounds, pt to d/c today. D/C orders are active. Pt is independent with ADLs and self-care, resides with her . No d/c planning needs. Assessment: Pt who is independent with ADLs and self-care Plan: Pt to discharge today, pt's to transport home via POV. No d/c needs. Ariana Senior MSW
--- NOTE | 2017-06-15 12:40 | NUR ---
Discharge Patient alert and oriented. Blood sugar 249 at lunch. Insulin given before discharge. IV removed. Discharge instructions, medications, and prescriptions covered with patient. Prednisone to be tapered off - 40mg for 3 days, then 20 mg for 3 days, then 10mg for 3 days, then 5mg for 3 days. Patient discharged with family and with personal belongings. Patient to make a follow-up appointment with PCP in 1 week. Addendum: 06/15/17 at 1451 by MARJAN DOWNING RN Patient was on prednisone prior to admit. Patient tolerating diet and activity. Pain is at a tolerable level.
== END 2017-06-15 12:30 | disposition home or self-care (01) ==
LOC: SED 13:28 → INTOOBSV 15:11 → OSC 15:11
PROVIDERS: ADMIT Internal Medicine; ATTEND Internal Medicine
DX: J44.1 Chronic obstructive pulmonary disease with (acute) exacerbation (principal); J96.10 Chronic respiratory failure, unspecified whether with hypoxia or hypercapnia; R74.0 Nonspecific elevation of levels of transaminase and lactic acid dehydrogenase [LDH]; E11.9 Type 2 diabetes mellitus without complications; I10 Essential (primary) hypertension; M48.02 Spinal stenosis, cervical region; F32.9 Major depressive disorder, single episode, unspecified; F11.20 Opioid dependence, uncomplicated; G89.29 Other chronic pain; C86.5 Angioimmunoblastic T-cell lymphoma; E03.9 Hypothyroidism, unspecified; Z99.81 Dependence on supplemental oxygen; Z79.51 Long term (current) use of inhaled steroids; Z90.81 Acquired absence of spleen; Z87.891 Personal history of nicotine dependence
CPT/HCPCS: 36415; 71010; 76700; 80048; 80053; 81000; 83036; 83605; 83880; 84145; 84484; 85025; 86403; 86705; 86709; 87040; 87340; 87341; 87449; 87633; 93005; 94640; 94644; 94645; 96372; 96374; 96375; 96376; 99285; G0378; G0472; J1644; J1815; J2405; J2930; J7030; J7613; J7620